=== PATIENT | male | born 1995 | race Caucasian/White ===

== ENCOUNTER 2020-08-17 18:09 | Emergency (ER) | payer MEDICAID ==
[~2020-08-17] VITALS: Ht 170.2 cm; Wt 68.0 kg
[2020-08-17 18:09] VITALS: BP 153/101
--- NOTE | 2020-08-17 18:09 | NUR ---
PT BIBA BLS AND PLACED IN BED 8.
--- NOTE | 2020-08-17 18:15 | NUR ---
[facility] [place] [address] [facility], [place]
--- NOTE | 2020-08-17 18:20 | NUR ---
25 Y/O MALE BIBA FROM [facility] IN [place], C/O ANXIETY X1 DAY. PT OFF WORK TODAY AND WAS AT THE [facility] AND FELT ANXIOUS BEING AROUND A LOT OF PEOPLE. PT ADMITS TO SMOKING METH LAST NIGHT. PT DENIES PAIN AT THIS TIME. PT IS VISIBLY ANXIOUS AND FIDGITING. PT REASSURED THAT THIS IS A SAFE ENVIRONMENT. PT REQUESTING ANXIETY MEDS. PT STATES THAT HE HAS INTERMITTENT SUICIDAL THOUGHTS BUT DENIES SUICIDAL THOUGHTS AT THIS TIME AND STATES THAT HE IS JUST ANXIOUS AND PARANOID. PT A/O X4 WITH EVEN AND UNLABORED RESPIRATIONS. HX METH USE, ANXIETY, HIGH CHOLESTEROL, SCHIZOPHRENIA MEDS:SEROQUEL FOR SLEEPING AND SCHIZOPHRENIA
[2020-08-17] MEDS ORDERED: LORazepam 0.5 MG TAB PO ONE ×2 (18:30→19:15)
--- NOTE | 2020-08-17 19:05 | NUR ---
Dr. Hodgson examining patient.
--- NOTE | 2020-08-17 19:10 | NUR ---
S/W WITH PATIENT REGARDING PLAN OF CARE. PT STATES "I FEEL ANXIOUS. I JUST WANT MEDICINE FOR MY ANXIETY. " PT REQUESTING A TAXI VOUCHER BACK TO [facility]. PT AGREEABLE TO BEING MEDICATED HERE AND GOING [facility].
--- NOTE | 2020-08-17 19:17 | NUR ---
REPORT GIVEN TO LESA RODRIGUEZ. TRANSFER OF CARE AT THIS TIME.
--- NOTE | 2020-08-17 19:50 | NUR ---
Patient discharged with v/s stable. TAXI VOUCHER PROVIDED. Written and verbal after care instructions given and explained. Patient verbalized understanding. Ambulatory with steady gait. All questions addressed prior to discharge. Advised to follow up with PMD.
[2020-08-17 19:51] VITALS: BP 153/101
== END 2020-08-17 19:50 | disposition home or self-care (01) ==
LOC: MED 18:09
DX: F20.9 Schizophrenia, unspecified (principal); F41.9 Anxiety disorder, unspecified; F60.0 Paranoid personality disorder; Z88.5 Allergy status to narcotic agent
CPT/HCPCS: 99283

== ENCOUNTER 2020-08-29 02:49 | Emergency (ER) | payer MEDICAID ==
[~2020-08-29] VITALS: Ht 162.6 cm; Wt 64.4 kg
--- NOTE | 2020-08-29 03:03 | NUR ---
PT TAKEN TO BED 7
[2020-08-29 03:08] VITALS: BP 140/82
--- NOTE | 2020-08-29 03:19 | NUR ---
25/M BIB self c/o 3 episodes of vomiting x 45 mins ago. Pt denies any pain, diarrhea, painful urination, fever, chills. hx of bipolar, and schizophrenia allx: haldol
[2020-08-29] MEDS ORDERED: ONDA-24 SL (03:39)
[2020-08-29] MEDS ORDERED: ONDANSETRON 4 MG ODT PO ONE (03:40)
[2020-08-29] MEDS ORDERED: LORazepam 0.5 MG TAB PO ONE (03:40)
--- NOTE | 2020-08-29 04:14 | NUR ---
d/c with [facility]. d/c education given. opportunity to ask questions given and answered. rx of zofran given.
== END 2020-08-29 04:14 | disposition home or self-care (01) ==
LOC: MED 02:49
DX: R11.2 Nausea with vomiting, unspecified (principal); F41.9 Anxiety disorder, unspecified; F20.9 Schizophrenia, unspecified; Z88.5 Allergy status to narcotic agent; Z79.899 Other long term (current) drug therapy
CPT/HCPCS: 82948; 93005; 99284; Q0162; 99283

== ENCOUNTER 2022-07-20 19:43 | Emergency (ER) | payer MEDICAID ==
[~2022-07-20] VITALS: Ht 170.2 cm; Wt 74.4 kg
[~2022-07-20 19:43] MED LIST: ONDA-188 SL
--- NOTE | 2022-07-20 19:50 | NUR ---
PT [facility], [facility], OFFLOADED IN CHAIR
[2022-07-20 19:52] VITALS: BP 154/104
--- NOTE | 2022-07-20 20:10 | NUR ---
LAB AT CHAIR SIDE.
--- NOTE | 2022-07-20 20:23 | NUR ---
COVID SWABS COLLECTED AND SENT TO LAB
[2022-07-20 20:24] LABS: BASOPHILS % (AUTO) 0.3 % (0.0-2.0); HEMATOCRIT 38.6 % (36-52); HEMOGLOBIN 13.4 g/dL (12.0-18.0); LYMPHOCYTES # (AUTO) 1.2 K/uL (2.0-11.5); LYMPHOCYTES % (AUTO) 10.6 % (20.5-51.1); MEAN CORPUSCULAR HEMOGLOBIN 29 pg (27-31); MEAN CORPUSCULAR HGB CONC 35 g/dL (33-37); MEAN CORPUSCULAR VOLUME 82.9 fL (80-94); MONOCYTES # (AUTO) 0.8 K/uL (0.8-1.0); MONOCYTES % (AUTO) 7.1 % (1.7-9.3); NEUTROPHILS # (AUTO) 9.5 K/uL (1.8-7.7); PLATELET COUNT (AUTO) 272 K/uL (140-450); RED BLOOD CELL COUNT(AUTO) 4.65 MIL/uL (4.20-6.10); RED CELL DISTRIBUTION WIDTH 12.6 % (11.6-13.7); WHITE BLOOD COUNT (AUTO) 11.6 K/uL (4.8-10.8)
[2022-07-20] MEDS ORDERED: NACL 0.9% 1,000 ML IV ONE (20:25)
[2022-07-20 20:45] LABS: ALBUMIN 4.9 g/dL (3.4-5.0); ANION GAP 13.2 (8-16); ASPARTATE AMINOTRANSFERASE 23 U/L (15-37); CARBON DIOXIDE 28.8 mmol/L (21-32); CHLORIDE 104 mmol/L (98-107); CREATININE 1.5 mg/dL (0.6-1.3); GFR ARICAN-AMERICAN 72 mL/min (>90); GLUCOSE 136 mg/dL (74-106); SODIUM SERUM 142 mmol/L (136-145); TOTAL BILIRUBIN 0.4 mg/dL (0.0-1.0); UREA NITROGEN, BLOOD 14 mg/dL (7-18)
--- NOTE | 2022-07-20 21:00 | NUR ---
Patient being evaluated by physician at bedside.
[2022-07-20] MEDS ORDERED: LORazepam 1 MG TAB PO ONE (21:05)
--- NOTE | 2022-07-20 21:08 | NUR ---
PT MOVED TO BED 5
--- NOTE | 2022-07-20 22:08 | NUR ---
27YR OLD MALE BIB EMS C/O SI. PT IS A&OX4 . PT STATES HE IS FROM [place] AND GOT LOST GOING TO [place]. [place] TO HARM SELF BY TAKING PILLS. HX OF SI IN PAST . PT HAS NO DIRECT "PLAN" OF HARMING SELF. DENIES HI INTENT. PT IS ANSWERING ALL QUESTIONS APPROPRIATELY. HALOPERIDOL SI LEONARDA
--- NOTE | 2022-07-20 23:15 | NUR ---
DR ROY SPEAKING WITH PT ON TELEPSYCH
--- NOTE | 2022-07-20 23:15 | NUR ---
TELEPSYCH WITH PT AT BEDSIDE
--- NOTE | 2022-07-20 23:33 | NUR ---
PER PT DOES NOT MEET 5150 CRITERIA. STATES PT'S SITUATION IS MORE OF AN ADJUSTMENT DISORDER. PT WOULD LIKE HOUSING THEREFORE KEEP PT UNTIL THE MORNING. GAVE A VERBAL ORDER TO GIVE 200MG OF SEROQUEL AT BEDTIME AND HAVE INSOLE AND OUTSOLE PREPARER/SOCIAL SERVICE FOLLOW UP WITH PATIENT. ORDERS CARRIED OUT, DR. JUAN MADE AWARE.
[2022-07-20] MEDS ORDERED: QUEtiapine FUMARATE 100 MG TAB PO ONE (23:35)
--- NOTE | 2022-07-20 23:40 | NUR ---
NO 5150 HOLD PT WILL STAY TILL AM TO FOLLOW UP WITH CASE MANAGEMENT
--- NOTE | 2022-07-21 00:33 | NUR ---
called pharmacy, spoke to Chalino about verifying serquel order, states he will check and follow up.
[2022-07-21] MEDS ORDERED: QUEtiapine FUMARATE 100 MG TAB ONE (00:41)
--- NOTE | 2022-07-21 01:27 | NUR ---
URINE COLLECTED AND SENT TO LAB
[2022-07-21 01:43] LABS: BARBITURATE, URINE NEGATIVE ng/ml (NEG <=200); BENZODIAZEPINE, URINE POSITIVE ng/mL (NEG <=200); CANNABINOID, URINE POSITIVE ng/mL (NEG <=50); COCAINE, URINE NEGATIVE ng/mL (NEG <=300); OPIATE, URINE NEGATIVE ng/mL (NEG <=2000); PHENCYCLIDINE SCREEN,URINE NEGATIVE ng/mL (NEG <=25)
--- NOTE | 2022-07-21 01:57 | NUR ---
PT AWAKE UP TO BATHROOM WITH STEADY GAIT.
--- NOTE | 2022-07-21 02:39 | NUR ---
DR JUAN AT BEDSIDE. PT IS ANXIOUS ASKING ABOUT PLACEMENT PACING ROOM. EXPLAINED ON SUCTION WORKER TO SEE PT IN AM .
[2022-07-21] MEDS ORDERED: LORazepam 1 MG TAB PO ONE (02:40)
[2022-07-21] MEDS ORDERED: diphenhydrAMINE 50 MG CAP PO ONE (02:40)
[2022-07-21] MEDS ORDERED: LORazepam 1 MG TAB ONE (02:46)
--- NOTE | 2022-07-21 04:35 | NUR ---
PT SLEEPING WITH HOB ELEVATED RESP EVEN AND UNLABORED. BED AT LOWEST LEVEL SIDE RAILS UP X2
--- NOTE | 2022-07-21 06:50 | NUR ---
Returned his belonging.
[2022-07-21 06:55] VITALS: BP 134/86
--- NOTE | 2022-07-21 06:55 | NUR ---
Patient discharged with v/s stable. Written and verbal after care instructions given and explained. Patient verbalized understanding. Ambulatory with steady gait. All questions addressed prior to discharge. Advised to follow up with PMD. Given Psychiatist facility [facility].
== END 2022-07-21 06:55 | disposition home or self-care (01) ==
LOC: MED 19:43
DX: R45.851 Suicidal ideations (principal); Z20.822 Contact with and (suspected) exposure to COVID-19; Z88.8 Allergy status to other drugs, medicaments and biological substances
CPT/HCPCS: 36415; 80053; 80305; 85025; 87426; 87635; 93005; 96360; 99285; G0482; Q0163; J7030

== ENCOUNTER 2023-01-12 11:47 | Emergency (ER) | payer MEDICAID ==
[~2023-01-12] VITALS: Ht 180.3 cm; Wt 74.8 kg
[2023-01-12 11:55] VITALS: BP 134/89; PULSE 146; RESP 44; TEMP 96.3; O2SAT 100
[2023-01-12] MEDS ORDERED: NACL 0.9% 1,000 ML IV ONE (12:00)
[2023-01-12] MEDS ORDERED: LORazepam 2 MG/ML VIAL IVP ONE (12:00)
[2023-01-12 12:35] LABS: BASOPHILS % (AUTO) 0.5 % (0.0-2.0); EOSINOPHILS % (AUTO) 0.2 % (0.0-4.0); HEMATOCRIT 41.6 % (36-52); HEMOGLOBIN 14.1 g/dL (12.0-18.0); LYMPHOCYTES # (AUTO) 1.8 K/uL (2.0-11.5); LYMPHOCYTES % (AUTO) 17.6 % (20.5-51.1); MEAN CORPUSCULAR HEMOGLOBIN 29 pg (27-31); MEAN CORPUSCULAR HGB CONC 34 g/dL (33-37); MEAN CORPUSCULAR VOLUME 84.9 fL (80-94); MONOCYTES # (AUTO) 0.8 K/uL (0.8-1.0); MONOCYTES % (AUTO) 7.6 % (1.7-9.3); NEUTROPHILS # (AUTO) 7.4 K/uL (1.8-7.7); NEUTROPHILS % (AUTO) 74.1 % (42.2-75.2); PLATELET COUNT (AUTO) 340 K/uL (140-450); RED CELL DISTRIBUTION WIDTH 13.3 % (11.6-13.7)
[2023-01-12 12:48] LABS: ALANINE AMINOTRANSFERASE 21 U/L (12-78); ALBUMIN 4.5 g/dL (3.4-5.0); ALCOHOL, BLOOD < 3 mg/dL (<10); ALKALINE PHOSPHATASE 56 U/L (50-136); ANION GAP 19.3 (8-16); ASPARTATE AMINOTRANSFERASE 21 U/L (15-37); CALCIUM 9.6 mg/dL (8.5-10.1); CARBON DIOXIDE 23.3 mmol/L (21-32); CHLORIDE 100 mmol/L (98-107); CREATININE 1.9 mg/dL (0.6-1.3); GFR ARICAN-AMERICAN 55 mL/min (>90); GFR NON ARICAN-AMERICAN 45 mL/min (>90); GLUCOSE 142 mg/dL (74-106); POTASSIUM 3.6 mmol/L (3.5-5.1); SODIUM SERUM 139 mmol/L (136-145); TOTAL BILIRUBIN 0.9 mg/dL (0.0-1.0); TOTAL PROTEIN, SERUM 8.7 g/dL (6.4-8.2); UREA NITROGEN, BLOOD 21 mg/dL (7-18)
[2023-01-12 12:49] LABS: ACETAMINOPHEN < 0.5 ug/ml (10-30); SALICYLATE < 2.8 mg/dL (2.8-20.0)
[2023-01-12 12:58] VITALS: TEMP 98.5
[2023-01-12 13:45] VITALS: BP 149/83; PULSE 113; RESP 22; O2SAT 100
[2023-01-13] MEDS ORDERED: ONDA-188 SL (05:56)
[2023-01-13] MEDS ORDERED: FAMO-92 PO (05:56)
== END 2023-01-12 14:06 | disposition home or self-care (01) ==
LOC: MED 11:47
DX: F15.10 Other stimulant abuse, uncomplicated (principal); F41.9 Anxiety disorder, unspecified; R00.0 Tachycardia, unspecified; F20.9 Schizophrenia, unspecified; F12.90 Cannabis use, unspecified, uncomplicated; Z71.6 Tobacco abuse counseling; Z79.899 Other long term (current) drug therapy; Z88.8 Allergy status to other drugs, medicaments and biological substances
CPT/HCPCS: 36415; 80053; 85025; 93005; 96361; 96374; 99284; G0480; G0482; J2060

== ENCOUNTER 2023-01-12 19:05 | Emergency (ER) | payer MEDICAID ==
[~2023-01-12] VITALS: Ht 170.2 cm; Wt 68.5 kg
[2023-01-12 20:52] VITALS: BP 116/85; PULSE 114; RESP 20; TEMP 97.4; O2SAT 97
[2023-01-13] MEDS ORDERED: ONDANSETRON 4 MG ODT PO ONE (05:55)
[2023-01-13] MEDS ORDERED: FAMOTIDINE 20 MG TAB PO ONE (05:55)
[2023-01-13] MEDS ORDERED: ONDA-188 SL (05:56)
[2023-01-13] MEDS ORDERED: FAMO-92 PO (05:56)
== END 2023-01-13 06:20 | disposition home or self-care (01) ==
LOC: MED 19:05
DX: K29.70 Gastritis, unspecified, without bleeding (principal); Z79.899 Other long term (current) drug therapy
CPT/HCPCS: 99283; Q0162